=== PATIENT | male | born 1980 | race Caucasian/White ===

== ENCOUNTER 2018-03-24 09:03 | Inpatient (IN) | payer MEDICAID, OTHER ==
[~2018-03-24] VITALS: Ht 180.3 cm; Wt 70.0 kg
[2018-03-24 10:31] LABS: CLARITY,URINE CLEAR (Clear); COLOR,URINE YELLOW (Yellow); GLUCOSE, URINE NEGATIVE (Neg); KETONES,URINE TRACE mg/dl (Neg); LEUKOCYTE ESTERASE ,URINE NEGATIVE (Neg); NITRITES, URINE NEGATIVE (Neg); OCCULT BLOOD,URINE NEGATIVE (Neg); PH,URINE 6.5 (4.8-8.0); PROTEIN,URINE NEGATIVE (Neg)
[2018-03-24] MEDS ORDERED: levoFLOXACIN-Levaquin 750MG/D5 150 ML IV STA (10:38)
[2018-03-24 10:39] LABS: UA COLLECTION TYPE CLN CATCH MIDSTREAM
[2018-03-24] MEDS ORDERED: normal saline 1000ml 1,000 ML IV ONE (10:40)
[2018-03-24 11:38] LABS: BASOPHILS % (AUTO) 0.5 % (0-1); EOSINOPHILS % (AUTO) 0 % (0-6); HEMOGLOBIN 14.1 g/dl (14.0-17.9); LYMPHOCYTES # (AUTO) 0.5 X10'3 (1.1-4.8); LYMPHOCYTES % (AUTO) 8.4 % (21-51); MEAN CORPUSCULAR HGB CONC 33.6 % (33.0-36.5); MEAN CORPUSCULAR VOLUME 92.3 FL (78-98); MEAN PLATELET VOLUME 9.8 FL (7.4-10.4); MONOCYTES # (AUTO) 0.4 X10'3 (0-0.9); MONOCYTES % (AUTO) 6.7 % (2-12); NEUTROPHILS # (AUTO) 4.6 X10'3 (1.8-7.7); NEUTROPHILS % (AUTO) 84.4 % (42-75); PLATELET COUNT 116 X10'3 (140-440); RED BLOOD COUNT 4.55 X10'6 (4.70-6.10); RED CELL DISTRIBUTION WIDTH 13.7 % (11.5-14.5); WHITE BLOOD COUNT 5.4 X10'3 (4.5-11.0)
[2018-03-24 11:51] LABS: ABG BASE EXCESS 1.7 mmol/L (-2.0-3.0); ABG HCO3 23.7 mmol/L (22.0-26.0); ABG OXYGEN SATURATION 92.9 % (95-98); ABG PCO2 (T) 29.7 mmHg (35.0-48.0); ABG PH (T) 7.519 (7.350-7.450); ABG PO2 (T) 63.1 mmHg (83-108); ALLEN'S TEST Positive; FCOHb 0.4 % (0.5-1.5); FMetHb 0.1 % (0.3-1.12); FO2Hb 92.4 % (94-100); RESPIRATORY RATE (OBSERVED) 14 b/min; TOTAL HEMOGLOBIN 13.4 G/dl (14.0-18.0)
[2018-03-24 11:59] LABS: D-DIMER 0.79 MG/L FEU (0-0.50); INR 1.2 INR; PARTIAL THROMBOPLASTIN TIME 33 SECONDS (22-32); PROTHROMBIN TIME 12.3 SECONDS (9.0-12.0)
[2018-03-24 12:05] LABS: ALANINE AMINOTRANSFERASE 107 U/L (12-78); ALBUMIN 2.6 G/DL (3.4-5.0); ALBUMIN/GLOBULIN RATIO 0.7 (1.1-1.5); ALKALINE PHOSPHATASE 76 IU/L (46-116); ANION GAP 9 (8-16); ASPARTATE AMINO TRANSFERASE 90 U/L (10-37); BILIRUBIN,TOTAL 0.5 MG/DL (0.1-1.0); BLOOD UREA NITROGEN 7 MG/DL (7-18); BUN/CREATININE RATIO 8.4 (5.4-32.0); CALCIUM 7.7 MG/DL (8.5-10.1); CHLORIDE 97 MMOL/L (99-107); CREATININE 0.83 MG/DL (0.60-1.10); GLUCOSE 89 MG/DL (70-104); POTASSIUM 3.4 MMOL/L (3.5-5.1); SODIUM 134 MMOL/L (135-145); TOTAL CARBON DIOXIDE 28.3 MMOL/L (24-32); TOTAL PROTEIN 6.3 G/DL (6.4-8.2); eGFR > 90 ML/MIN
[2018-03-24] MEDS ORDERED: iohexol 350MG/ML 100ml bottle IV ONE (12:42)
[2018-03-24] MEDS: normal saline 1000ml 1,000 ML IV SCH (14:09)
[2018-03-24] MEDS ORDERED: morphine 2 MG/ML inj. syringe IV PRN ×2 (14:10)
[2018-03-24] MEDS ORDERED: magnesium hydroxide 30ml (MOM) UD suspension PO PRN (14:10)
[2018-03-24] MEDS ORDERED: acetaminophen 325mg tablet PO PRN (14:10)
[2018-03-24] MEDS ORDERED: mag hydrox/Alum hydrox/simeth 30ml oral suspension PO PRN (14:10)
[2018-03-24] MEDS ORDERED: ondansetron/PF 4mg/2ml inj IV PRN (14:10)
[2018-03-24] MEDS ORDERED: BENZ1TAB7 PO (15:23)
[2018-03-24] MEDS ORDERED: TEN1T PO (15:23)
[2018-03-24] MEDS ORDERED: PARO-62 PO (15:23)
[2018-03-24] MEDS ORDERED: OLAN10TA3 PO (15:23)
[2018-03-24] MEDS ORDERED: MULT1CAP44 PO (15:23)
[2018-03-24] MEDS ORDERED: LEVO500T2 PO (15:23)
[2018-03-24] MEDS ORDERED: DIVA500T2 PO (15:23)
[2018-03-24] MEDS ORDERED: ARIP5TAB4 PO (15:23)
[2018-03-24] MEDS ORDERED: PALI9TAB PO (15:23)
[2018-03-24] MEDS ORDERED: CLON-528 PO (15:23)
[2018-03-24] MEDS ORDERED: BUPR100T5 PO (15:23)
[2018-03-24] MEDS ORDERED: OMEG1CAP46 PO (15:23)
[2018-03-24] MEDS ORDERED: ALB0.5UD IH (15:24)
[2018-03-24] MEDS ORDERED: piperacillin/tazo 4.5gm/100ml 100 ML IV SCH (16:00)
[2018-03-24] MEDS: CefTRIAXone/D5W-Rocephin 1gm 50 ML IV SCH (16:31)
[2018-03-24] MEDS: azithromycin/NS 500mg/250ml 250 ML IV SCH (17:14)
[2018-03-24 18:40] VITALS: BP 104/54
[2018-03-24] MEDS: clonazePAM 0.5mg tablet PO SCH (19:38)
[2018-03-24 20:00] VITALS: BP 96/65
[2018-03-24] MEDS: benztropine 1mg tablet PO SCH (20:48)
[2018-03-24] MEDS: divalproex sodium 500mg tablet.DR PO SCH (20:48)
[2018-03-24] MEDS: guanFACINE 1 mg tablet PO SCH (20:48)
[2018-03-24] MEDS ORDERED: olanzapine 10mg tablet PO SCH (21:00)
[2018-03-25] VITALS: BP 96/58
[2018-03-25] MEDS: normal saline 1000ml 1,000 ML IV SCH ×2 (00:09→03:43)
[2018-03-25 05:15] LABS: BASOPHILS % (AUTO) 0.2 % (0-1); EOSINOPHILS % (AUTO) 0.1 % (0-6); HEMATOCRIT 35.5 % (42.0-52.0); HEMOGLOBIN 12.2 g/dl (14.0-17.9); LYMPHOCYTES # (AUTO) 0.6 X10'3 (1.1-4.8); LYMPHOCYTES % (AUTO) 15.2 % (21-51); MEAN CORPUSCULAR HEMOGLOBIN 30.9 PG (27.0-31.0); MEAN CORPUSCULAR HGB CONC 34.2 % (33.0-36.5); MEAN CORPUSCULAR VOLUME 90.4 FL (78-98); MEAN PLATELET VOLUME 10.2 FL (7.4-10.4); MONOCYTES # (AUTO) 0.6 X10'3 (0-0.9); MONOCYTES % (AUTO) 14.6 % (2-12); NEUTROPHILS # (AUTO) 2.9 X10'3 (1.8-7.7); NEUTROPHILS % (AUTO) 69.9 % (42-75); PLATELET COUNT 127 X10'3 (140-440); RED BLOOD COUNT 3.93 X10'6 (4.70-6.10); RED CELL DISTRIBUTION WIDTH 13.5 % (11.5-14.5); WHITE BLOOD COUNT 4.2 X10'3 (4.5-11.0)
[2018-03-25 05:23] LABS: ALBUMIN 2.2 G/DL (3.4-5.0); ANION GAP 8 (8-16); BLOOD UREA NITROGEN 7 MG/DL (7-18); BUN/CREATININE RATIO 10.1 (5.4-32.0); CALCIUM 7.4 MG/DL (8.5-10.1); CHLORIDE 101 MMOL/L (99-107); CREATININE 0.69 MG/DL (0.60-1.10); GLUCOSE 113 MG/DL (70-104); POTASSIUM 3.4 MMOL/L (3.5-5.1); SODIUM 134 MMOL/L (135-145); TOTAL CARBON DIOXIDE 25.4 MMOL/L (24-32); eGFR > 90 ML/MIN
[2018-03-25 08:00] VITALS: BP 102/57
[2018-03-25] MEDS: aripiprazole 5mg tablet PO SCH (08:10)
[2018-03-25] MEDS: clonazePAM 0.5mg tablet PO SCH (08:10)
[2018-03-25] MEDS: multivitamins, therapeutics tablet PO SCH (08:10)
[2018-03-25] MEDS: enoxaparin 40mg/0.4ml syringe SUBCUT SCH (08:11)
[2018-03-25] MEDS: CefTRIAXone/D5W-Rocephin 1gm 50 ML IV SCH (08:12)
[2018-03-25] MEDS: divalproex sodium 500mg tablet.DR PO SCH ×2 (08:12→22:06)
[2018-03-25] MEDS: buPROPion SR 100mg tab PO SCH (08:12)
[2018-03-25] MEDS: benztropine 1mg tablet PO SCH ×2 (08:12→22:06)
[2018-03-25] MEDS: PARoxetine 20mg tablet PO SCH (08:12)
[2018-03-25] MEDS: PALIPERIDONE 3 MG TAB.ER.24 PO SCH (08:12)
[2018-03-25] MEDS: azithromycin/NS 500mg/250ml 250 ML IV SCH (09:50)
[2018-03-25 11:00] VITALS: BP 98/60
[2018-03-25] MEDS ORDERED: potassium Cl 20 mEq SR tablet PO PRN ×2 (11:25)
[2018-03-25] MEDS ORDERED: potassium Cl 40MEQ/NS 500ml 500 ML IV PRN ×2 (11:25)
[2018-03-25] MEDS ORDERED: magnesium Cl slow-release 64mg tablet PO PRN (11:25)
[2018-03-25] MEDS ORDERED: magnesium 4gm in 100ml NS 100 ML IV PRN (11:25)
[2018-03-25] MEDS ORDERED: magnesium 2 GM in 50ml IV PRN (11:30)
[2018-03-25] MEDS ORDERED: clonazePAM 0.5mg tablet PO PRN (12:50)
[2018-03-25 13:00] VITALS: BP 95/57
[2018-03-25] MEDS: levoFLOXACIN-Levaquin 750MG/D5 150 ML IV SCH (16:07)
[2018-03-25 17:11] LABS: URINE AMPHETAMINE SCREEN NEGATIVE (Neg); URINE BARBITUATE SCREEN NEGATIVE (Neg); URINE BENZODIAZEPINES SCREEN NEGATIVE (Neg); URINE CANNABINOID SCREEN NEGATIVE (Neg); URINE COCAINE SCREEN NEGATIVE (Neg); URINE METHADONE SCREEN NEGATIVE (Neg); URINE OPIATE SCREEN NEGATIVE (Neg); URINE PHENCYCLIDINE SCREEN NEGATIVE (Neg)
[2018-03-25] MEDS: Potassium Cl inj 20 MEQ in normal saline 1000ml 1,000 ML IV SCH (17:13)
[2018-03-25 20:00] VITALS: BP 100/64
[2018-03-25] MEDS ORDERED: OLANZapine 5mg rapidly disint. tablet PO SCH (21:00)
[2018-03-25] MEDS: guanFACINE 1 mg tablet PO SCH (22:06)
[2018-03-26] VITALS: BP 95/55
[2018-03-26] MEDS: Potassium Cl inj 20 MEQ in normal saline 1000ml 1,000 ML IV SCH ×2 (03:03→10:21)
[2018-03-26 05:25] LABS: BASOPHILS % (AUTO) 0.8 % (0-1); EOSINOPHILS # (AUTO) 0.1 X10'3 (0-0.9); EOSINOPHILS % (AUTO) 2.2 % (0-6); HEMATOCRIT 38.2 % (42.0-52.0); HEMOGLOBIN 12.9 g/dl (14.0-17.9); LYMPHOCYTES % (AUTO) 24.9 % (21-51); MEAN CORPUSCULAR HEMOGLOBIN 30.9 PG (27.0-31.0); MEAN CORPUSCULAR HGB CONC 33.6 % (33.0-36.5); MEAN CORPUSCULAR VOLUME 91.8 FL (78-98); MEAN PLATELET VOLUME 10.5 FL (7.4-10.4); MONOCYTES # (AUTO) 0.8 X10'3 (0-0.9); MONOCYTES % (AUTO) 18.8 % (2-12); NEUTROPHILS # (AUTO) 2.2 X10'3 (1.8-7.7); NEUTROPHILS % (AUTO) 53.3 % (42-75); PLATELET COUNT 186 X10'3 (140-440); RED BLOOD COUNT 4.16 X10'6 (4.70-6.10); RED CELL DISTRIBUTION WIDTH 14.3 % (11.5-14.5); WHITE BLOOD COUNT 4.2 X10'3 (4.5-11.0)
[2018-03-26 05:46] LABS: ALANINE AMINOTRANSFERASE 201 U/L (12-78); ALBUMIN 2.1 G/DL (3.4-5.0); ALBUMIN/GLOBULIN RATIO 0.6 (1.1-1.5); ALKALINE PHOSPHATASE 111 IU/L (46-116); ANION GAP 6 (8-16); ASPARTATE AMINO TRANSFERASE 200 U/L (10-37); BILIRUBIN,TOTAL 0.3 MG/DL (0.1-1.0); BLOOD UREA NITROGEN 6 MG/DL (7-18); BUN/CREATININE RATIO 8.3 (5.4-32.0); CALCIUM 7.8 MG/DL (8.5-10.1); CHLORIDE 106 MMOL/L (99-107); CREATININE 0.72 MG/DL (0.60-1.10); GLUCOSE 96 MG/DL (70-104); SODIUM 138 MMOL/L (135-145); TOTAL CARBON DIOXIDE 25.8 MMOL/L (24-32); TOTAL PROTEIN 5.7 G/DL (6.4-8.2); eGFR > 90 ML/MIN
[2018-03-26] MEDS: levoFLOXACIN-Levaquin 750MG/D5 150 ML IV SCH (07:41)
[2018-03-26] MEDS: benztropine 1mg tablet PO SCH (07:43)
[2018-03-26] MEDS: aripiprazole 5mg tablet PO SCH (07:43)
[2018-03-26] MEDS: divalproex sodium 500mg tablet.DR PO SCH (07:44)
[2018-03-26] MEDS: multivitamins, therapeutics tablet PO SCH (07:45)
[2018-03-26] MEDS: PARoxetine 20mg tablet PO SCH (07:45)
[2018-03-26] MEDS: PALIPERIDONE 3 MG TAB.ER.24 PO SCH (07:45)
[2018-03-26] MEDS: buPROPion SR 100mg tab PO SCH (07:45)
[2018-03-26] MEDS: enoxaparin 40mg/0.4ml syringe SUBCUT SCH (07:46)
[2018-03-26 07:51] VITALS: BP 104/62
[2018-03-26 08:00] LABS: PLATELET ESTIMATE NORMAL; TOTAL CELLS COUNTED 100
[2018-03-26 08:01] LABS: BURR CELLS 2+
[2018-03-26 08:02] LABS: ELLIPTOCYTES 1+
[2018-03-26 11:41] VITALS: BP 98/57
[2018-03-26] MEDS ORDERED: LEVO750T21 PO (11:46)
[2018-03-27] MEDS ORDERED: levoFLOXACIN 750MG TABLET PO SCH (11:00)
== END 2018-03-26 15:39 | DRG 133 ==
LOC: ER 09:04 → ED HOLD 14:09 → SUR 3N 18:15
PROVIDERS: ADMIT Internal Medicine; ATTEND Internal Medicine
PROC: B32T1ZZ Computerized Tomography (CT Scan) of Left Pulmonary Artery using Low Osmolar Contrast (ICD-10-PCS; principal; 2018-03-24)
PROC: B3201ZZ Computerized Tomography (CT Scan) of Thoracic Aorta using Low Osmolar Contrast (ICD-10-PCS; 2018-03-24)
PROC: B32S1ZZ Computerized Tomography (CT Scan) of Right Pulmonary Artery using Low Osmolar Contrast (ICD-10-PCS; 2018-03-24)
DX: J96.01 Acute respiratory failure with hypoxia (principal); G93.40 Encephalopathy, unspecified; J18.1 Lobar pneumonia, unspecified organism; F20.9 Schizophrenia, unspecified; F32.9 Major depressive disorder, single episode, unspecified; E87.6 Hypokalemia; F41.9 Anxiety disorder, unspecified; R74.0 Nonspecific elevation of levels of transaminase and lactic acid dehydrogenase [LDH]; Z88.8 Allergy status to other drugs, medicaments and biological substances; Z79.899 Other long term (current) drug therapy
CPT/HCPCS: 36415; 36600; 71045; 71275; 80048; 80053; 80305; 81003; 82803; 83605; 84145; 84484; 85018; 85025; 85379; 85610; 85730; 87040; 87070; 93005; 96361; 96365; 96366; 99285; G0378; J0456; J0696; J1650; J1956; J2543; J3480; J3490; J7030; Q9967